=== PATIENT | female | born 1985 | race Caucasian/White ===

== ENCOUNTER 2022-10-18 00:29 | Emergency (ER) | payer BC, OTHER ==
[~2022-10-18] VITALS: Ht 167.6 cm; Wt 64.0 kg
[2022-10-18] MEDS ORDERED: LIDOCAINE VISCOUS 2% UD 15 ML UDC ONE (01:18)
[2022-10-18] MEDS ORDERED: MAG HYDROX/AL HYDROX/SIMETH 30 ML UDC ONE (01:18)
[2022-10-18] MEDS ORDERED: MAG HYDROX/AL HYDROX/SIMETH 30 ML UDC PO ONE (01:30)
[2022-10-18] MEDS ORDERED: LIDOCAINE VISCOUS 2% UD 15 ML UDC MM ONE (01:30)
--- NOTE | 2022-10-18 01:30 | NUR ---
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 O2 SAT 100% RA. 17 WKS GESTATION. PATIENT PLACED IN GOWN, ATTACHED MONITOR AND TO POX. VITALS WITHIN LIMITS
--- NOTE | 2022-10-18 01:33 | NUR ---
URINE SAMPLE SENT TO LAB
--- NOTE | 2022-10-18 01:34 | NUR ---
LAB AT BEDSIDE
[2022-10-18 01:48] LABS: BILIRUBIN,URINE NEGATIVE (NEGATIVE); COLOR,URINE YELLOW (YELLOW); LEUKOCYTE ESTERASE ,URINE NEGATIVE (NEGATIVE); NITRITE, URINE NEGATIVE (NEGATIVE); PROTEIN,URINE 1+ mg/dl (NEGATIVE); UGLUCOSE NEGATIVE (NEGATIVE); UROBILINOGEN,URINE 0.2 EU/dL (0.2)
--- NOTE | 2022-10-18 01:53 | NUR ---
ultrasound at bedside
[2022-10-18 01:56] LABS: BASOPHILS % (AUTO) 0.3 % (0.0-2.0); CALCIUM, SERUM 8.7 mg/dL (8.5-10.1); CREATININE 0.4 mg/dL (0.6-1.3); EOSINOPHILS % (AUTO) 0.4 % (0.0-6.0); HEMATOCRIT 39 % (33-45); HEMOGLOBIN 12.7 g/dL (11.5-14.8); LYMPHOCYTES # (AUTO) 1.4 K/uL (0.8-4.8); LYMPHOCYTES % (AUTO) 14.1 % (20.0-44.0); MEAN CORPUSCULAR HGB CONC 33 g/dl (31.0-36.0); MEAN CORPUSCULAR VOLUME 86 fL (82-100); MONOCYTES # (AUTO) 0.4 K/uL (0.1-1.30); MONOCYTES % (AUTO) 3.8 % (2.0-12.0); NEUTROPHILS # (AUTO) 8.3 K/uL (1.8-8.9); NEUTROPHILS % (AUTO) 81.4 % (43.0-81.0); PLATELET COUNT (AUTO) 228 K/uL (150-450); POTASSIUM 3.6 mmol/L (3.5-5.1); WHITE BLOOD COUNT (AUTO) 10.2 K/uL (4.3-11.0)
[2022-10-18 02:06] LABS: BACTERIA,URINE None seen /HPF (None Seen); WBC,URINE 0-2 /HPF (0-3)
[2022-10-18 02:07] LABS: MUCUS,URINE Few /LPF (None Seen); SQUAMOUS EPITHELIAL CELL,UR None Seen /HPF (None Seen)
[2022-10-18 02:32] LABS: ALBUMIN 2.9 g/dL (3.4-5.0); BILIRUBIN,DIRECT 0.1 mg/dL (0.0-0.2); BILIRUBIN,TOTAL 0.2 mg/dL (0.2-1.0)
[2022-10-18] MEDS ORDERED: ACETAMINOPHEN ES 500 MG TABLET ONE ×2 (03:11→06:29)
[2022-10-18] MEDS ORDERED: ACETAMINOPHEN 325 MG TABLET PO ONE (03:30)
--- NOTE | 2022-10-18 06:30 | NUR ---
Patient discharged to home in stable condition. Written and verbal after care instructions given. Patient verbalizes understanding of instruction.
[2022-10-18 06:50] VITALS: BP 125/75
== END 2022-10-18 07:03 | disposition home or self-care (01) ==
LOC: ER 00:38
DX: O26.899 Other specified pregnancy related conditions, unspecified trimester (principal); R10.10 Upper abdominal pain, unspecified; K92.89 Other specified diseases of the digestive system
CPT/HCPCS: 36415; 76700-TC; 80048-TC; 80076-TC; 81001; 84702-TC; 85025-TC; 85730-TC; 86403-TC